=== PATIENT | female | born 1970 | race Caucasian/White ===

== ENCOUNTER 2021-07-20 23:11 | Emergency (ER) | payer OTHER ==
[~2021-07-20] VITALS: Ht 160 cm; Wt 61.2 kg
[2021-07-20 23:25] VITALS: BP 111/60
--- NOTE | 2021-07-20 23:25 | NUR ---
TO LOBBY FOLLOWING TRIAGE
[2021-07-21] MEDS ORDERED: MORPHINE SULFATE 4 MG/ML SYR IM ONE (02:30)
[2021-07-21 03:35] LABS: BASOPHILS # (AUTO) 0.1 K/uL (0.00-0.22); EOSINOPHILS # (AUTO) 0.2 K/uL (0-0.4); EOSINOPHILS % (AUTO) 2.8 % (0.0-4.0); HEMATOCRIT 33.6 % (36-48); HEMOGLOBIN 11.3 g/dL (12.0-16.0); LYMPHOCYTES # (AUTO) 3.3 K/uL (2.5-16.5); LYMPHOCYTES % (AUTO) 42.7 % (20.5-51.1); MEAN CORPUSCULAR HEMOGLOBIN 33 pg (27-31); MEAN CORPUSCULAR HGB CONC 34 g/dL (33-37); MONOCYTES # (AUTO) 0.5 K/uL (0.8-1.0); MONOCYTES % (AUTO) 5.9 % (1.7-9.3); NEUTROPHILS # (AUTO) 3.6 K/uL (1.8-7.7); NEUTROPHILS % (AUTO) 47.6 % (42.2-75.2); PLATELET COUNT (AUTO) 352 K/uL (140-450); RED BLOOD CELL COUNT(AUTO) 3.46 MIL/uL (4.20-5.40); RED CELL DISTRIBUTION WIDTH 13.8 % (11.6-13.7); WHITE BLOOD COUNT (AUTO) 7.6 K/uL (4.8-10.8)
[2021-07-21 04:08] LABS: ALBUMIN 3.8 g/dL (3.4-5.0); ANION GAP 16.6 (8-16); CARBON DIOXIDE 21.2 mmol/L (21-32); CREATININE 1.2 mg/dL (0.6-1.3); POTASSIUM 3.8 mmol/L (3.5-5.1); TOTAL BILIRUBIN 0.2 mg/dL (0.0-1.0)
--- NOTE | 2021-07-21 04:25 | NUR ---
PATIENT LEFT WITHOUT BEING SEEN BY DR. PENA. NO FURTHER CARE PROVIDED FOR PATIENT.
== END 2021-07-21 04:25 | disposition left against medical advice (07) ==
LOC: MED 23:11
DX: R56.9 Unspecified convulsions (principal); F17.290 Nicotine dependence, other tobacco product, uncomplicated; D64.9 Anemia, unspecified; E83.51 Hypocalcemia; G62.9 Polyneuropathy, unspecified; Z86.73 Personal history of transient ischemic attack (TIA), and cerebral infarction without residual deficits
CPT/HCPCS: 70450; 80053; 85025; 93005; 99285